=== PATIENT | female | born 1970 | race Caucasian/White ===

== ENCOUNTER → 2017-11-27 | Emergency (ER) | payer BC ==
[~2017-11-27] VITALS: Ht 165.1 cm; Wt 91.6 kg
[~2017-11-27] MED LIST: IBUPROFEN200 M1 PO; NORCO 5-325 TA1 EACH PO
== END ==
LOC: ED 23:57
DX: M79.621 Pain in right upper arm (principal); G43.909 Migraine, unspecified, not intractable, without status migrainosus; Z88.6 Allergy status to analgesic agent
CPT/HCPCS: 99283